=== PATIENT | female | born 2005 | race Caucasian/White ===

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

== ENCOUNTER → 2025-03-16 07:54 | Outpatient (CLI) | payer OTHER, SELFPAY ==
--- NOTE | 2025-03-16 07:56 | DI.US.S_ITS ---
PROCEDURE: US ABDOMEN LIMITED INDICATIONS: RUQ pain TECHNIQUE: Real-time scanning was performed of the abdominal and retroperitoneal organs, with image documentation. COMPARISON: None. FINDINGS: Liver: Liver is normal in size, measures 15 cm, and homogeneous in echotexture. Gallbladder: No gallstones. Gallbladder is nondistended. No ultrasound evidence of gallbladder wall thickening or pericholecystic fluid. Sonographic Danielle sign is not delineated. Biliary ducts: Intrahepatic bile ducts are non-dilated. Extrahepatic bile duct caliber measures 3 mm. Normal is 6-7 mm or less in diameter, or 10 mm or less post-cholecystectomy. Pancreas: Visualized portions of the pancreas are sonographically normal. Pancreatic tail is not well visualized due to overlying bowel gas. IMPRESSION: No gallstones. Common bile duct 3 mm within normal limits. If symptoms persist or worsen, or there is high clinical suspicion of abdominal abnormality, CT could be performed. Dictated by: Danny Rucker M.D. on 03/16/2025 at 8:35 Approved by: Danny Rucker M.D. on 03/16/2025 at 8:38
== END ==
PROVIDERS: PCP Family Medicine; Referring Provider Family Medicine; Visit Provider Family Medicine
DX: R10.11 Right upper quadrant pain (principal)
CPT/HCPCS: 76705